=== PATIENT | female | born 1990 | race African-American/Black ===

== ENCOUNTER 2017-03-17 07:11 | Emergency (ER) | payer MEDICAID ==
[~2017-03-17] VITALS: Ht 177.8 cm; Wt 74.0 kg
[~2017-03-17 07:11] MED LIST: HYDR-1348 PO; KEPP500 PO; LEVO500T15 PO; ONDA4TAB5 PO; [UNRECOGNIZED DRUG - CODE] MC
[2017-03-17] MEDS ORDERED: ACETAMINOPHEN 325MG TABLET PO ONE (09:00)
[2017-03-17 09:44] VITALS: BP 110/77
== END 2017-03-17 10:00 | disposition home or self-care (01) ==
LOC: ER 08:43
DX: M54.2 Cervicalgia (principal); M25.522 Pain in left elbow; M25.551 Pain in right hip; Z88.5 Allergy status to narcotic agent
CPT/HCPCS: 72040; 72170; 99284; Z7610

== ENCOUNTER 2017-11-09 09:54 | Emergency (ER) | payer MEDICAID, MEDICARE ==
[~2017-11-09] VITALS: Ht 165.1 cm; Wt 59.0 kg
[~2017-11-09 09:54] MED LIST changes: -LEVO500T15 PO; +LEVO500T2 PO
[2017-11-09] MEDS ORDERED: LORAZEPAM 2MG/ML CPJ IV ONE (11:00)
[2017-11-09] MEDS ORDERED: LEVETIRACETAM 1000MG/100ML 100 ML IV ONE (11:15)
[2017-11-09 11:25] LABS: CHLORIDE 105 mEq/L (98-107)
[2017-11-09 11:30] LABS: BASOPHILS % 0.9 % (0.0-2.0); EOSINOPHILS % 1.8 % (0.0-5.0); ETHANOL BLOOD < 10 mg/dL; HEMATOCRIT. 43.4 % (36.0-48.0); HEMOGLOBIN. 14.2 g/dL (12.0-16.0); LYMPHOCYTES % 28.1 % (20.0-50.0); MEAN CORPUSCULAR HEMOGLOBIN 31.3 pg (28.0-32.0); MEAN CORPUSCULAR VOLUME 95.4 fL (81.0-99.0); MEAN PLATELET VOLUME 9.7 fl (7.4-10.4); NEUTROPHILS % 62.2 % (40.0-76.0); PLATELET 308 x1000/uL (130-400); RED BLOOD CELL COUNT 4.55 mill/uL (4.2-5.4); RED CELL DISTRIBUTION WIDTH 14.2 % (11.6-14.6)
[2017-11-09 11:59] LABS: CLARITY URINE CLEAR (CLEAR); COLOR URINE YELLOW (YELLOW); KETONES URINE NEGATIVE (NEGATIVE); LEUKOCYTE ESTERASE URINE NEGATIVE (NEGATIVE); NITRITE URINE NEGATIVE (NEGATIVE); OCCULT BLOOD URINE TRACE (NEGATIVE); PROTEIN URINE TRACE (NEGATIVE); SPECIFIC GRAVITY URINE 1.021 (1.005-1.030); UROBILINOGEN URINE 0.2 E.U./dL (0.2-1.0)
[2017-11-09 12:52] LABS: *AMPHETAMINES SCREEN URINE NEGATIVE (NEGATIVE); *BARBITURATES SCREEN URINE NEGATIVE (NEGATIVE)
[2017-11-09 12:53] LABS: *BENZODIAZEPINES SCREEN URINE NEGATIVE (NEGATIVE); *COCAINE SCREEN URINE NEGATIVE (NEGATIVE); METHADONE URINE SCREEN NEGATIVE (NEGATIVE); OPIATES URINE SCREEN NEGATIVE (NEGATIVE); PHENCYCLIDINE URINE SCREEN NEGATIVE (NEGATIVE)
[2017-11-09 12:54] LABS: CANNABINOID URINE SCREEN PRESUMTIVE POSITIVE (NEGATIVE)
[2017-11-09] MEDS ORDERED: ONDANSETRON 4MG ODT PO ONE (17:30)
[2017-11-09 18:02] VITALS: BP 98/57
== END 2017-11-09 18:03 | disposition home or self-care (01) ==
LOC: ER 10:29
DX: G40.909 Epilepsy, unspecified, not intractable, without status epilepticus (principal); Z88.5 Allergy status to narcotic agent
CPT/HCPCS: 36415; 70450; 71045; 80053; 80305; 81003; 81025; 82962; 85025; 96365; 96375; 99285; G0482; J1953; J2060; Q0162; Z7610

== ENCOUNTER 2017-11-20 05:41 | Emergency (ER) | payer MEDICARE ==
[~2017-11-20] VITALS: Ht 175.3 cm; Wt 69.0 kg
[2017-11-20 06:01] VITALS: BP 101/68
== END 2017-11-20 10:38 | disposition left against medical advice (07) ==
LOC: ER 06:09
DX: Z53.21 Procedure and treatment not carried out due to patient leaving prior to being seen by health care provider (principal)

== ENCOUNTER 2018-04-10 12:46 | Emergency (ER) | payer MEDICARE ==
[~2018-04-10] VITALS: Ht 167.6 cm; Wt 65.0 kg
[~2018-04-10 12:46] MED LIST changes: +IOHEXOL-300 100 ML BOTTLE ONE
[2018-04-10] MEDS ORDERED: ONDANSETRON HCL 4MG/2ML INJ IV STA (13:09)
[2018-04-10] MEDS ORDERED: MAGNESIUM/ALUMINUM HYDROXIDE/SIMETHICONE 30ML UDC PO STA (13:09)
[2018-04-10] MEDS ORDERED: FAMOTIDINE 20MG/2ML VIAL IV STA (13:09)
[2018-04-10] MEDS ORDERED: SODIUM CHLORIDE 0.9% 1,000 ML IV ONE (13:09)
[2018-04-10 13:37] LABS: BASOPHILS % 0.5 % (0.0-2.0); HEMATOCRIT. 39.8 % (36.0-48.0); HEMOGLOBIN. 13.7 g/dL (12.0-16.0); LYMPHOCYTES % 17.8 % (20.0-50.0); MEAN CORPUSCULAR HEMOGLOBIN 31.5 pg (28.0-32.0); MEAN CORPUSCULAR VOLUME 91.6 fL (81.0-99.0); MEAN PLATELET VOLUME 9.5 fl (7.4-10.4); NEUTROPHILS % 75.7 % (40.0-76.0); PLATELET 293 x1000/uL (130-400); RED BLOOD CELL COUNT 4.35 mill/uL (4.2-5.4); RED CELL DISTRIBUTION WIDTH 13.2 % (11.6-14.6)
[2018-04-10 13:44] LABS: PROTHROMBIN TIME 10.2 sec (9.1-11.1)
[2018-04-10 13:45] LABS: CHLORIDE 105 mEq/L (98-107)
[2018-04-10] MEDS ORDERED: DIPHENHYDRAMINE 50MG/ML VIAL IV ONE (14:15)
[2018-04-10] MEDS ORDERED: METOCLOPRAMIDE HCL 10MG/2ML VIAL IV ONE (14:15)
[2018-04-10] MEDS ORDERED: DICYCLOMINE HCL 10MG/ML 2ML AMP IM ONE (14:15)
[2018-04-10] MEDS ORDERED: KCL 20MEQ/100ML PREMIX 100 ML IV ONE (14:15)
[2018-04-10 15:03] LABS: CLARITY URINE CLEAR (CLEAR); COLOR URINE YELLOW (YELLOW); KETONES URINE 4+ (NEGATIVE); LEUKOCYTE ESTERASE URINE NEGATIVE (NEGATIVE); NITRITE URINE NEGATIVE (NEGATIVE); OCCULT BLOOD URINE NEGATIVE (NEGATIVE); PROTEIN URINE 1+ (NEGATIVE); SPECIFIC GRAVITY URINE 1.022 (1.005-1.030)
[2018-04-10] MEDS ORDERED: SODIUM CHLORIDE 0.9% 1,000 ML IV NR (16:00)
[2018-04-10 16:39] LABS: *AMPHETAMINES SCREEN URINE NEGATIVE (NEGATIVE); *BARBITURATES SCREEN URINE NEGATIVE (NEGATIVE); *BENZODIAZEPINES SCREEN URINE NEGATIVE (NEGATIVE); *COCAINE SCREEN URINE NEGATIVE (NEGATIVE)
[2018-04-10 16:40] LABS: METHADONE URINE SCREEN NEGATIVE (NEGATIVE); OPIATES URINE SCREEN NEGATIVE (NEGATIVE); PHENCYCLIDINE URINE SCREEN NEGATIVE (NEGATIVE)
[2018-04-10 16:43] LABS: CANNABINOID URINE SCREEN PRESUMTIVE POSITIVE (NEGATIVE)
[2018-04-10 18:25] VITALS: BP 111/69
== END 2018-04-10 18:34 | disposition home or self-care (01) ==
LOC: ER 12:46
DX: R11.2 Nausea with vomiting, unspecified (principal); R73.9 Hyperglycemia, unspecified; E87.2 Acidosis; K86.2 Cyst of pancreas; N28.1 Cyst of kidney, acquired; F12.10 Cannabis abuse, uncomplicated; Z76.5 Malingerer [conscious simulation]; Z88.6 Allergy status to analgesic agent; Z79.899 Other long term (current) drug therapy
CPT/HCPCS: 36415; 74177; 80053; 80305; 81003; 81025; 83690; 85025; 85610; 93005; 96361; 96372; 96374; 96375; 99285; J0500; J1200; J2405; J2765; J3480; J3490; J7030; Q9967; 96365

== ENCOUNTER 2018-06-19 13:08 | Emergency (ER) | payer MEDICARE, MEDICAID ==
[~2018-06-19] VITALS: Ht 167.6 cm; Wt 76.0 kg
[~2018-06-19 13:08] MED LIST changes: -IOHEXOL-300 100 ML BOTTLE ONE
[2018-06-19] MEDS ORDERED: SODIUM CHLORIDE 0.9% 1,000 ML IV ONE (15:27)
[2018-06-19] MEDS ORDERED: KETOROLAC 30MG/ML VIAL IV STA (15:27)
[2018-06-19] MEDS ORDERED: ONDANSETRON HCL 4MG/2ML INJ IV STA (15:27)
[2018-06-19] MEDS ORDERED: LORAZEPAM 2MG/ML CPJ IV ONE (15:30)
[2018-06-19] MEDS ORDERED: FAMOTIDINE 20MG/2ML VIAL IV ONE (15:30)
[2018-06-19 15:44] LABS: HEMATOCRIT. 38.9 % (36.0-48.0); HEMOGLOBIN. 13.2 g/dL (12.0-16.0); MEAN CORPUSCULAR HEMOGLOBIN 31.1 pg (28.0-32.0); MEAN CORPUSCULAR VOLUME 91.3 fL (81.0-99.0); MEAN PLATELET VOLUME 9.6 fl (7.4-10.4); PLATELET 299 x1000/uL (130-400); RED BLOOD CELL COUNT 4.26 mill/uL (4.2-5.4); RED CELL DISTRIBUTION WIDTH 13.3 % (11.6-14.6)
[2018-06-19 15:45] LABS: CHLORIDE 105 mEq/L (98-107)
[2018-06-19 16:01] LABS: HCG SCREEN NEGATIVE
[2018-06-19 16:25] LABS: PLATELET ESTIMATE NORMAL
[2018-06-19] MEDS ORDERED: LEVETIRACETAM 500MG PREMIX 100 ML IV ONE (17:00)
[2018-06-19] MEDS ORDERED: POTASSIUM CHLORIDE 10MEQ TABLET SR PO ONE (18:15)
[2018-06-19] MEDS ORDERED: IOHEXOL-300 100 ML BOTTLE ONE (21:09)
[2018-06-19 22:12] LABS: CLARITY URINE CLEAR (CLEAR); COLOR URINE YELLOW (YELLOW); KETONES URINE 1+ (NEGATIVE); LEUKOCYTE ESTERASE URINE NEGATIVE (NEGATIVE); NITRITE URINE NEGATIVE (NEGATIVE); OCCULT BLOOD URINE NEGATIVE (NEGATIVE); PROTEIN URINE TRACE (NEGATIVE); SPECIFIC GRAVITY URINE 1.021 (1.005-1.030); UROBILINOGEN URINE 0.2 E.U./dL (0.2-1.0)
[2018-06-19 22:22] LABS: *AMPHETAMINES SCREEN URINE NEGATIVE (NEGATIVE); *BARBITURATES SCREEN URINE NEGATIVE (NEGATIVE); *BENZODIAZEPINES SCREEN URINE NEGATIVE (NEGATIVE); *COCAINE SCREEN URINE NEGATIVE (NEGATIVE); METHADONE URINE SCREEN NEGATIVE (NEGATIVE); OPIATES URINE SCREEN NEGATIVE (NEGATIVE); PHENCYCLIDINE URINE SCREEN NEGATIVE (NEGATIVE)
[2018-06-19 22:29] LABS: CANNABINOID URINE SCREEN PRESUMTIVE POSITIVE (NEGATIVE)
[2018-06-20] MEDS ORDERED: SODIUM CHLORIDE 0.9% 1000ML BAG (SEPSIS BOLUS) IV ONE (00:15)
[2018-06-20 09:00] VITALS: BP 101/72
== END 2018-06-20 09:15 | disposition left against medical advice (07) ==
LOC: ER 13:08 → UNDOADMIN 06-20 02:15 → 6EST 06-20 02:15 → EDBEDREQSVC 06-20 02:49 → ENRESERV 06-20 02:52 → ER 06-20 04:05
DX: R10.13 Epigastric pain (principal); D72.828 Other elevated white blood cell count; E87.6 Hypokalemia; J98.11 Atelectasis; Q61.01 Congenital single renal cyst; G40.909 Epilepsy, unspecified, not intractable, without status epilepticus; Z88.5 Allergy status to narcotic agent
CPT/HCPCS: 36415; 71045; 74177; 80053; 80305; 81003; 83690; 84703; 85025; 85610; 96361; 96365; 96375; 99285; J1885; J1953; J2060; J2405; J3490; J7030; Q9967

== ENCOUNTER 2018-10-25 15:57 | Emergency (ER) | payer MEDICAID, MEDICARE ==
[~2018-10-25] VITALS: Ht 175.3 cm; Wt 68.0 kg
[2018-10-25 16:05] VITALS: BP 100/70
== END 2018-10-25 18:08 | disposition left against medical advice (07) ==
LOC: ER 15:57
DX: Z53.21 Procedure and treatment not carried out due to patient leaving prior to being seen by health care provider (principal)

== ENCOUNTER 2019-01-22 06:39 | Emergency (ER) | payer MEDICARE ==
[~2019-01-22] VITALS: Ht 177.8 cm; Wt 63.0 kg
[2019-01-22] MEDS ORDERED: LEVETIRACETAM 1000MG/100ML 100 ML IV ONE (07:00)
[2019-01-22 07:10] LABS: BASOPHILS % 0.6 % (0.0-2.0); EOSINOPHILS % 7.6 % (0.0-5.0); HEMATOCRIT. 39.5 % (36.0-48.0); HEMOGLOBIN. 13.2 g/dL (12.0-16.0); LYMPHOCYTES % 24.8 % (20.0-50.0); MEAN CORPUSCULAR HEMOGLOBIN 30.9 pg (28.0-32.0); MEAN CORPUSCULAR VOLUME 92.4 fL (81.0-99.0); MEAN PLATELET VOLUME 9.3 fl (7.4-10.4); MONOCYTES % 8.1 % (2.0-8.0); NEUTROPHILS % 58.9 % (40.0-76.0); PLATELET 234 x1000/uL (130-400); RED BLOOD CELL COUNT 4.27 mill/uL (4.2-5.4); RED CELL DISTRIBUTION WIDTH 13.4 % (11.6-14.6)
[2019-01-22 07:15] LABS: CHLORIDE 109 mEq/L (98-107)
[2019-01-22 07:19] LABS: ETHANOL BLOOD < 10 mg/dL
[2019-01-22 09:35] LABS: CLARITY URINE CLEAR (CLEAR); COLOR URINE YELLOW (YELLOW); KETONES URINE NEGATIVE (NEGATIVE); LEUKOCYTE ESTERASE URINE NEGATIVE (NEGATIVE); NITRITE URINE NEGATIVE (NEGATIVE); OCCULT BLOOD URINE NEGATIVE (NEGATIVE); PH URINE 7.5 (4.5-8.0); PROTEIN URINE NEGATIVE (NEGATIVE); SPECIFIC GRAVITY URINE 1.018 (1.005-1.030); UROBILINOGEN URINE 0.2 E.U./dL (0.2-1.0)
[2019-01-22 09:46] LABS: *AMPHETAMINES SCREEN URINE NEGATIVE (NEGATIVE); *BARBITURATES SCREEN URINE NEGATIVE (NEGATIVE); *BENZODIAZEPINES SCREEN URINE NEGATIVE (NEGATIVE); *COCAINE SCREEN URINE NEGATIVE (NEGATIVE)
[2019-01-22 09:48] LABS: CANNABINOID URINE SCREEN PRESUMTIVE POSITIVE (NEGATIVE); METHADONE URINE SCREEN NEGATIVE (NEGATIVE); OPIATES URINE SCREEN NEGATIVE (NEGATIVE); PHENCYCLIDINE URINE SCREEN NEGATIVE (NEGATIVE)
[2019-01-22 10:52] VITALS: BP 100/60
== END 2019-01-22 11:20 | disposition home or self-care (01) ==
LOC: ER 06:39
DX: R56.9 Unspecified convulsions (principal); F12.10 Cannabis abuse, uncomplicated; Z88.6 Allergy status to analgesic agent; Z79.899 Other long term (current) drug therapy
CPT/HCPCS: 36415; 80053; 80305; 80320; 81003; 85025; 96365; 99283; J1953; G0480

== ENCOUNTER 2019-03-11 07:08 | Emergency (ER) | payer OTHER, MEDICARE ==
[~2019-03-11] VITALS: Ht 167.6 cm; Wt 80.0 kg
[2019-03-11] MEDS ORDERED: LEVETIRACETAM 1000MG/100ML 100 ML IV ONE (07:30)
[2019-03-11] MEDS ORDERED: ONDANSETRON HCL 4MG/2ML INJ IV ONE (08:45)
[2019-03-11 09:22] LABS: CHLORIDE 110 mEq/L (98-107); HEMATOCRIT. 38.2 % (36.0-48.0); HEMOGLOBIN. 12.8 g/dL (12.0-16.0); MEAN CORPUSCULAR HEMOGLOBIN 30.6 pg (28.0-32.0); MEAN CORPUSCULAR VOLUME 91.2 fL (81.0-99.0); MEAN PLATELET VOLUME 9.5 fl (7.4-10.4); PLATELET 223 x1000/uL (130-400); RED BLOOD CELL COUNT 4.19 mill/uL (4.2-5.4); RED CELL DISTRIBUTION WIDTH 13.1 % (11.6-14.6)
[2019-03-11 09:26] LABS: ETHANOL BLOOD < 10 mg/dL
[2019-03-11] MEDS ORDERED: KETOROLAC 30MG/ML VIAL IV ONE (09:30)
[2019-03-11 10:39] LABS: PLATELET ESTIMATE NORMAL
[2019-03-11 10:40] VITALS: BP 112/75
== END 2019-03-11 11:30 | disposition home or self-care (01) ==
LOC: ER 07:08
DX: G40.909 Epilepsy, unspecified, not intractable, without status epilepticus (principal); F12.10 Cannabis abuse, uncomplicated; Z88.5 Allergy status to narcotic agent
CPT/HCPCS: 36415; 80053; 80320; 85025; 96365; 96375; 99283; J1885; J1953; J2405; G0480

== ENCOUNTER 2019-03-31 08:13 | Emergency (ER) | payer OTHER, MEDICARE ==
[~2019-03-31] VITALS: Ht 175.3 cm; Wt 73.0 kg
[2019-03-31] MEDS ORDERED: LEVETIRACETAM 500MG PREMIX 100 ML IV ONE (09:45)
[2019-03-31 10:27] VITALS: BP 103/67
== END 2019-03-31 10:47 | disposition home or self-care (01) ==
LOC: ER 08:34
DX: S00.512A Abrasion of oral cavity, initial encounter (principal); R56.9 Unspecified convulsions; F12.10 Cannabis abuse, uncomplicated; Z88.5 Allergy status to narcotic agent; Z98.890 Other specified postprocedural states; Z91.14 Patient's other noncompliance with medication regimen; X58.XXXA Exposure to other specified factors, initial encounter; Y93.89 Activity, other specified; Y92.89 Other specified places as the place of occurrence of the external cause; Y99.8 Other external cause status
CPT/HCPCS: 96365; 99283; J1953

== ENCOUNTER 2019-06-16 13:19 | Inpatient (IN) | payer OTHER, MEDICAID ==
[~2019-06-16] VITALS: Ht 175.3 cm; Wt 72.6 kg
[2019-06-16] MEDS ORDERED: SODIUM CHLORIDE 0.9% 1,000 ML IV ONE (14:21)
[2019-06-16] MEDS ORDERED: KETOROLAC 30MG/ML VIAL IV STA (14:21)
[2019-06-16] MEDS ORDERED: DIAZEPAM 5 MG TABLET PO ONE (14:30)
[2019-06-16 14:44] LABS: BASOPHILS % 1.2 % (0.0-2.0); EOSINOPHILS % 6.2 % (0.0-5.0); HEMATOCRIT. 36.6 % (36.0-48.0); HEMOGLOBIN. 12.6 g/dL (12.0-16.0); LYMPHOCYTES % 31.9 % (20.0-50.0); MEAN CORPUSCULAR HEMOGLOBIN 31.5 pg (28.0-32.0); MEAN CORPUSCULAR VOLUME 91.7 fL (81.0-99.0); MEAN PLATELET VOLUME 9.3 fl (7.4-10.4); MONOCYTES % 7.5 % (2.0-8.0); NEUTROPHILS % 53.2 % (40.0-76.0); PLATELET 214 x1000/uL (130-400); RED CELL DISTRIBUTION WIDTH 13.4 % (11.6-14.6)
[2019-06-16 14:51] LABS: CHLORIDE 110 mEq/L (98-107)
[2019-06-16 14:59] LABS: HCG SCREEN NEGATIVE
[2019-06-16] MEDS ORDERED: DEXT 5%/0.45% NACL KCL 20MEQ/L 1,000 ML IV ONE (15:08)
[2019-06-16] MEDS ORDERED: IOHEXOL-300 100 ML BOTTLE ONE (19:50)
[2019-06-16] MEDS ORDERED: LEVETIRACETAM 500MG TABLET PO ONE (20:45)
[2019-06-16] MEDS ORDERED: HYDROMORPHONE HCL/PF 2MG/ML CPJ IV PRN (22:00)
[2019-06-16] MEDS ORDERED: IPRATROPIUM/ALBUTEROL 0.5-3(2.5)MG/3ML NEB NEB PRN (22:00)
[2019-06-16] MEDS ORDERED: ONDANSETRON HCL 4MG/2ML INJ IV PRN (22:00)
[2019-06-16] MEDS ORDERED: NA PHOS,M-B/NA PHOS,DI-BA ENEMA 118ML PR PRN (22:00)
[2019-06-16] MEDS ORDERED: DOCUSATE SODIUM 100MG CAPSULE PO PRN (22:00)
[2019-06-16] MEDS ORDERED: MAGNESIUM/ALUMINUM HYDROXIDE/SIMETHICONE 30ML UDC PO PRN (22:00)
[2019-06-16] MEDS ORDERED: GUAIFENESIN 200MG/10ML SUGAR FREE UDC PO PRN (22:00)
[2019-06-16] MEDS ORDERED: PIPERACILLIN/TAZ 3.375G PREMIX 50 ML IV SCH (22:00)
[2019-06-16] MEDS ORDERED: ACETAMINOPHEN 325MG TABLET PO PRN (22:00)
[2019-06-16] MEDS ORDERED: LORAZEPAM 2MG/ML CPJ IV PRN (22:00)
[2019-06-16] MEDS ORDERED: HYDROCODONE/ACETAMINOPHEN 10/325MG TABLET PO PRN (22:00)
[2019-06-16] MEDS ORDERED: CLONIDINE 0.1MG TABLET PO PRN (22:00)
[2019-06-16 22:50] VITALS: BP 99/89
[2019-06-17] VITALS: BP 99/59
[2019-06-17] MEDS: PIPERACILLIN/TAZOBACTAM 3.375 G in DEXT 5% WATER 100 ML IV SCH ×3 (00:03→13:04)
[2019-06-17 00:23] LABS: CHLORIDE 110 mEq/L (98-107)
[2019-06-17 04:00] VITALS: BP 99/59
[2019-06-17 06:34] LABS: BASOPHILS % 1.1 % (0.0-2.0); HEMATOCRIT. 34.8 % (36.0-48.0); LYMPHOCYTES % 38.1 % (20.0-50.0); MEAN CORPUSCULAR HEMOGLOBIN 31.3 pg (28.0-32.0); MEAN CORPUSCULAR VOLUME 91.1 fL (81.0-99.0); MEAN PLATELET VOLUME 9.6 fl (7.4-10.4); MONOCYTES % 9.6 % (2.0-8.0); NEUTROPHILS % 42.2 % (40.0-76.0); PLATELET 203 x1000/uL (130-400); RED BLOOD CELL COUNT 3.82 mill/uL (4.2-5.4); RED CELL DISTRIBUTION WIDTH 13.2 % (11.6-14.6)
[2019-06-17 07:11] LABS: CHLORIDE 109 mEq/L (98-107)
[2019-06-17 07:22] LABS: LDL CHOLESTEROL 59 mg/dL (5-100)
[2019-06-17 07:23] LABS: HDL CHOLESTEROL 68 mg/dL (40-59)
[2019-06-17 07:35] LABS: T4 FREE 0.88 ng/dL (0.76-1.46)
[2019-06-17] MEDS ORDERED: LEVETIRACETAM 500MG TABLET PO SCH (09:00)
[2019-06-17 15:29] VITALS: BP 108/72
== END 2019-06-17 15:46 | disposition home or self-care (01) | DRG 552 ==
LOC: ER 13:32 → 6EST 20:47 → EDBEDREQ 20:49 → EDBEDREQTM 20:49 → ENRESERV 21:07
PROVIDERS: ADMIT Internal Medicine; ATTEND Internal Medicine
DX: M54.2 Cervicalgia (principal); E86.0 Dehydration; D24.2 Benign neoplasm of left breast; D24.1 Benign neoplasm of right breast; G40.909 Epilepsy, unspecified, not intractable, without status epilepticus; Z88.5 Allergy status to narcotic agent; Z79.899 Other long term (current) drug therapy
CPT/HCPCS: 36415; 70491; 71045; 72070; 80048; 80061; 82962; 83880; 84439; 84443; 84484; 84703; 93005; 99285; J1885; J2543; J7030; J7040; J7060; Q9967

== ENCOUNTER 2019-07-13 06:21 | Emergency (ER) | payer OTHER, MEDICAID ==
[~2019-07-13] VITALS: Ht 170.2 cm; Wt 64.0 kg
[2019-07-13] MEDS ORDERED: ONDANSETRON HCL 4MG/2ML INJ IV STA (06:48)
[2019-07-13] MEDS ORDERED: KETOROLAC 30MG/ML VIAL IV STA (06:48)
[2019-07-13] MEDS ORDERED: SODIUM CHLORIDE 0.9% 1,000 ML IV ONE (06:48)
[2019-07-13 08:39] LABS: BASOPHILS % 0.3 % (0.0-2.0); EOSINOPHILS % 0.5 % (0.0-5.0); HEMATOCRIT. 38.6 % (36.0-48.0); HEMOGLOBIN. 12.9 g/dL (12.0-16.0); LYMPHOCYTES % 9.4 % (20.0-50.0); MEAN CORPUSCULAR HEMOGLOBIN 30.7 pg (28.0-32.0); MEAN CORPUSCULAR VOLUME 91.3 fL (81.0-99.0); MEAN PLATELET VOLUME 9.9 fl (7.4-10.4); MONOCYTES % 4.6 % (2.0-8.0); NEUTROPHILS % 85.2 % (40.0-76.0); PLATELET 241 x1000/uL (130-400); RED BLOOD CELL COUNT 4.22 mill/uL (4.2-5.4); RED CELL DISTRIBUTION WIDTH 13.1 % (11.6-14.6)
[2019-07-13 08:42] LABS: CHLORIDE 105 mEq/L (98-107)
[2019-07-13 08:44] LABS: PROTHROMBIN TIME 9.9 sec (9.6-11.0)
[2019-07-13 08:52] LABS: HCG SCREEN NEGATIVE
[2019-07-13] MEDS ORDERED: LEVETIRACETAM 500MG TABLET PO ONE (09:30)
[2019-07-13 10:40] VITALS: BP 106/71
[2019-07-13 11:05] LABS: CLARITY URINE CLOUDY (CLEAR); COLOR URINE YELLOW (YELLOW); KETONES URINE 4+ (NEGATIVE); LEUKOCYTE ESTERASE URINE NEGATIVE (NEGATIVE); NITRITE URINE NEGATIVE (NEGATIVE); OCCULT BLOOD URINE NEGATIVE (NEGATIVE); PROTEIN URINE 1+ (NEGATIVE)
== END 2019-07-13 10:47 | disposition home or self-care (01) ==
LOC: ER 06:21
DX: R10.84 Generalized abdominal pain (principal); Z76.0 Encounter for issue of repeat prescription; G40.909 Epilepsy, unspecified, not intractable, without status epilepticus; Z85.9 Personal history of malignant neoplasm, unspecified; Z88.5 Allergy status to narcotic agent
CPT/HCPCS: 36415; 80053; 81003; 83690; 84703; 85025; 85610; 96361; 96374; 96375; 99283; J1885; J2405; J7030

== ENCOUNTER 2019-09-25 14:43 | Emergency (ER) | payer MEDICAID, OTHER ==
[~2019-09-25] VITALS: Ht 182.9 cm; Wt 69.0 kg
[2019-09-25] MEDS ORDERED: SODIUM CHLORIDE 0.9% 1,000 ML IV ONE (16:45)
[2019-09-25] MEDS ORDERED: IBUPROFEN 600MG TABLET PO STA (16:45)
[2019-09-25 17:04] LABS: CLARITY URINE CLOUDY (CLEAR); COLOR URINE YELLOW (YELLOW); KETONES URINE NEGATIVE (NEGATIVE); LEUKOCYTE ESTERASE URINE NEGATIVE (NEGATIVE); NITRITE URINE NEGATIVE (NEGATIVE); OCCULT BLOOD URINE NEGATIVE (NEGATIVE); PROTEIN URINE TRACE (NEGATIVE); SPECIFIC GRAVITY URINE 1.021 (1.005-1.030)
[2019-09-25 17:16] LABS: BASOPHILS % 0.9 % (0.0-2.0); EOSINOPHILS % 1.7 % (0.0-5.0); HEMATOCRIT. 38.1 % (36.0-48.0); MEAN CORPUSCULAR HEMOGLOBIN 31.4 pg (28.0-32.0); MEAN PLATELET VOLUME 9.2 fl (7.4-10.4); MONOCYTES % 5.3 % (2.0-8.0); NEUTROPHILS % 80.1 % (40.0-76.0); PLATELET 223 x1000/uL (130-400); RED BLOOD CELL COUNT 4.15 mill/uL (4.2-5.4); RED CELL DISTRIBUTION WIDTH 13.2 % (11.6-14.6)
[2019-09-25 17:23] LABS: CHLORIDE 110 mEq/L (98-107)
[2019-09-25 17:24] LABS: HCG SCREEN NEGATIVE
[2019-09-25 18:58] VITALS: BP 107/85
== END 2019-09-25 19:38 | disposition home or self-care (01) ==
LOC: ER 14:52
DX: G40.909 Epilepsy, unspecified, not intractable, without status epilepticus (principal); S82.831A Other fracture of upper and lower end of right fibula, initial encounter for closed fracture; Z88.5 Allergy status to narcotic agent; X58.XXXA Exposure to other specified factors, initial encounter; Y93.89 Activity, other specified; Y92.89 Other specified places as the place of occurrence of the external cause
CPT/HCPCS: 29515; 36415; 73610; 80053; 81003; 84703; 85025; 99284; J7030

== ENCOUNTER 2020-01-15 11:25 | Emergency (ER) | payer OTHER ==
[~2020-01-15] VITALS: Ht 172.7 cm; Wt 73.0 kg
[2020-01-15] MEDS ORDERED: SODIUM CHLORIDE 0.9% 1,000 ML IV ONE (11:59)
[2020-01-15] MEDS ORDERED: ACETAMINOPHEN 325MG TABLET PO ONE (12:00)
[2020-01-15] MEDS ORDERED: LEVETIRACETAM 500MG TABLET PO ONE (12:00)
[2020-01-15 13:15] LABS: BASOPHILS % 0.6 % (0.0-2.0); EOSINOPHILS % 1.8 % (0.0-5.0); HEMATOCRIT. 38.4 % (36.0-48.0); HEMOGLOBIN. 13.1 g/dL (12.0-16.0); LYMPHOCYTES % 14.6 % (20.0-50.0); MEAN CORPUSCULAR HEMOGLOBIN 32.3 pg (28.0-32.0); MEAN CORPUSCULAR VOLUME 94.2 fL (81.0-99.0); MEAN PLATELET VOLUME 9.5 fl (7.4-10.4); MONOCYTES % 6.7 % (2.0-8.0); NEUTROPHILS % 76.3 % (40.0-76.0); PLATELET 214 x1000/uL (130-400); RED BLOOD CELL COUNT 4.08 mill/uL (4.2-5.4); RED CELL DISTRIBUTION WIDTH 13.4 % (11.6-14.6)
[2020-01-15 13:28] LABS: CHLORIDE 109 mEq/L (98-107)
[2020-01-15 13:33] LABS: HCG SCREEN NEGATIVE
[2020-01-15 13:38] LABS: ETHANOL BLOOD < 10 mg/dL
[2020-01-15] MEDS ORDERED: IBUPROFEN 400MG TABLET PO ONE (14:30)
[2020-01-15 15:16] VITALS: BP 106/60
== END 2020-01-15 15:21 | disposition home or self-care (01) ==
LOC: ER 11:25
DX: G40.909 Epilepsy, unspecified, not intractable, without status epilepticus (principal); R51 Headache; Z88.5 Allergy status to narcotic agent
CPT/HCPCS: 36415; 70450; 70486; 71045; 80053; 80320; 84703; 85025; 99285; J7030; G0480

== ENCOUNTER 2020-04-25 07:51 | Emergency (ER) | payer OTHER ==
[~2020-04-25] VITALS: Ht 165.1 cm; Wt 62.0 kg
[2020-04-25] MEDS ORDERED: LEVETIRACETAM 1000MG/100ML 100 ML IV ONE (08:15)
[2020-04-25 08:37] LABS: BASOPHILS % 0.9 % (0.0-2.0); EOSINOPHILS % 6.4 % (0.0-5.0); HEMATOCRIT. 39.7 % (36.0-48.0); HEMOGLOBIN. 13.2 g/dL (12.0-16.0); LYMPHOCYTES % 30.4 % (20.0-50.0); MEAN CORPUSCULAR HEMOGLOBIN 31.7 pg (28.0-32.0); MEAN CORPUSCULAR VOLUME 95.1 fL (81.0-99.0); MEAN PLATELET VOLUME 9.3 fl (7.4-10.4); NEUTROPHILS % 54.3 % (40.0-76.0); PLATELET 226 x1000/uL (130-400); RED BLOOD CELL COUNT 4.18 mill/uL (4.2-5.4); RED CELL DISTRIBUTION WIDTH 13.8 % (11.6-14.6)
[2020-04-25 08:40] LABS: CHLORIDE 109 mEq/L (98-107)
[2020-04-25 08:44] LABS: ETHANOL BLOOD < 10 mg/dL
[2020-04-25 10:30] VITALS: BP 88/46
== END 2020-04-25 11:20 | disposition home or self-care (01) ==
LOC: ER 08:17
DX: G40.909 Epilepsy, unspecified, not intractable, without status epilepticus (principal); Z88.5 Allergy status to narcotic agent; Z88.2 Allergy status to sulfonamides
CPT/HCPCS: 36415; 80053; 80320; 85025; 96365; 99284; J1953; G0480

== ENCOUNTER 2020-09-27 09:16 | Inpatient (IN) | payer SELFPAY ==
[~2020-09-27] VITALS: Ht 175.3 cm; Wt 73.9 kg
[2020-09-27] MEDS ORDERED: LEVETIRACETAM 1000MG PREMIX 100 ML IV ONE (10:00)
[2020-09-27] MEDS ORDERED: SODIUM CHLORIDE 0.9% 1,000 ML IV ONE (10:45)
[2020-09-27] MEDS ORDERED: ONDANSETRON HCL 4MG/2ML INJ IV ONE (10:45)
[2020-09-27 11:12] LABS: BASOPHILS % 0.9 % (0.0-2.0); EOSINOPHILS % 2.1 % (0.0-5.0); HEMATOCRIT. 36.2 % (36.0-48.0); HEMOGLOBIN. 12.2 g/dL (12.0-16.0); LYMPHOCYTES % 13.7 % (20.0-50.0); MEAN CORPUSCULAR HEMOGLOBIN 31.2 pg (28.0-32.0); MEAN CORPUSCULAR VOLUME 92.9 fL (81.0-99.0); MEAN PLATELET VOLUME 10.1 fl (7.4-10.4); NEUTROPHILS % 76.3 % (40.0-76.0); PLATELET 262 x1000/uL (130-400); RED BLOOD CELL COUNT 3.89 mill/uL (4.2-5.4); RED CELL DISTRIBUTION WIDTH 13.3 % (11.6-14.6)
[2020-09-27 11:23] LABS: CHLORIDE 111 mEq/L (98-107)
[2020-09-27 11:33] LABS: CARBAMAZEPINE < 0.5 ug/mL (4-12); PHENOBARBITAL < 2.1 ug/mL (15.0-40.0); VALPROIC ACID < 3.0 ug/mL (50-100)
[2020-09-27] MEDS ORDERED: LORAZEPAM 2MG/ML CPJ IV ONE (11:45)
[2020-09-27] MEDS ORDERED: FAMOTIDINE 20MG/2ML VIAL IV ONE (12:00)
[2020-09-27 13:12] LABS: ETHANOL BLOOD < 10 mg/dL
[2020-09-27 13:23] LABS: HCG SCREEN NEGATIVE
[2020-09-27] MEDS ORDERED: ONDANSETRON HCL 4MG/2ML INJ IV PRN (13:45)
[2020-09-27] MEDS ORDERED: ACETAMINOPHEN 325MG TABLET PO PRN ×2 (13:45)
[2020-09-27] MEDS ORDERED: CLONIDINE 0.1MG TABLET PO PRN (13:45)
[2020-09-27] MEDS ORDERED: MAGNESIUM/ALUMINUM HYDROXIDE/SIMETHICONE 30ML UDC PO PRN (13:45)
[2020-09-27] MEDS ORDERED: DOCUSATE SODIUM 100MG CAPSULE PO PRN (13:45)
[2020-09-27] MEDS ORDERED: KETOROLAC 15MG/ML VIAL IV PRN (13:45)
[2020-09-27] MEDS ORDERED: LORAZEPAM 2MG/ML CPJ IV PRN (13:45)
[2020-09-27] MEDS ORDERED: GUAIFENESIN 200MG/10ML SUGAR FREE UDC PO PRN (13:45)
[2020-09-27] MEDS ORDERED: IPRATROPIUM/ALBUTEROL 0.5-3(2.5)MG/3ML NEB NEB PRN (13:45)
[2020-09-27] MEDS ORDERED: NITROGLYCERIN 0.4MG TABLET SL SL PRN (13:45)
[2020-09-27 21:00] LABS: CREATINE KINASE 380 IU/L (26-192); CREATINE KINASE MB FRACTION < 1.0 ng/mL (0.5-3.6)
[2020-09-27] MEDS ORDERED: ZOLPIDEM TARTRATE 5MG TABLET PO PRN (21:00)
[2020-09-27] MEDS: ASCORBIC ACID 500 MG TABLET PO SCH (21:20)
[2020-09-27] MEDS: LEVETIRACETAM 500MG TABLET PO SCH (21:20)
[2020-09-27] MEDS: FAMOTIDINE 20MG TABLET PO SCH (21:20)
[2020-09-27] MEDS: SUCRALFATE 1 G/10 ML UDC PO SCH ×2 (22:06→22:15)
[2020-09-28] VITALS (8 sets, daily range): BP systolic 82–111; BP diastolic 42–89
[2020-09-28 00:38] LABS: CREATINE KINASE 598 IU/L (26-192)
[2020-09-28 00:42] LABS: CREATINE KINASE MB FRACTION < 1.0 ng/mL (0.5-3.6)
[2020-09-28] MEDS ORDERED: LEVE750T4 MT (02:43)
[2020-09-28] MEDS: SUCRALFATE 1 G/10 ML UDC PO SCH ×4 (06:46→20:54)
[2020-09-28 07:02] LABS: CHLORIDE 110 mEq/L (98-107)
[2020-09-28 07:09] LABS: PHOSPHORUS 3.4 mg/dL (2.5-4.9)
[2020-09-28 07:14] LABS: BASOPHILS % 0.8 % (0.0-2.0); EOSINOPHILS % 2.6 % (0.0-5.0); HEMATOCRIT. 35.5 % (36.0-48.0); HEMOGLOBIN. 11.9 g/dL (12.0-16.0); LYMPHOCYTES % 24.2 % (20.0-50.0); MEAN CORPUSCULAR HEMOGLOBIN 31.1 pg (28.0-32.0); MEAN CORPUSCULAR VOLUME 92.8 fL (81.0-99.0); MEAN PLATELET VOLUME 9.5 fl (7.4-10.4); MONOCYTES % 8.5 % (2.0-8.0); NEUTROPHILS % 63.9 % (40.0-76.0); PLATELET 215 x1000/uL (130-400); RED BLOOD CELL COUNT 3.83 mill/uL (4.2-5.4); RED CELL DISTRIBUTION WIDTH 13.1 % (11.6-14.6)
[2020-09-28] MEDS: ASCORBIC ACID 500 MG TABLET PO SCH ×2 (08:25→20:54)
[2020-09-28] MEDS: ASPIRIN 325MG EC TABLET PO SCH (08:25)
[2020-09-28] MEDS: LEVETIRACETAM 500MG TABLET PO SCH ×2 (08:26→20:54)
[2020-09-28] MEDS: FAMOTIDINE 20MG TABLET PO SCH ×2 (08:26→20:55)
[2020-09-28 18:51] LABS: *AMPHETAMINES SCREEN URINE NEGATIVE (NEGATIVE); *BARBITURATES SCREEN URINE NEGATIVE (NEGATIVE); *BENZODIAZEPINES SCREEN URINE NEGATIVE (NEGATIVE); *COCAINE SCREEN URINE NEGATIVE (NEGATIVE)
[2020-09-28 18:52] LABS: METHADONE URINE SCREEN NEGATIVE (NEGATIVE); OPIATES URINE SCREEN NEGATIVE (NEGATIVE); PHENCYCLIDINE URINE SCREEN NEGATIVE (NEGATIVE)
[2020-09-28 19:01] LABS: CANNABINOID URINE SCREEN PRESUMTIVE POSITIVE (NEGATIVE)
[2020-09-29] VITALS: BP 102/62
[2020-09-29 04:00] VITALS: BP 101/56
[2020-09-29] MEDS: SUCRALFATE 1 G/10 ML UDC PO SCH (06:42)
[2020-09-29 08:00] VITALS: BP 97/62
[2020-09-29] MEDS: LEVETIRACETAM 500MG TABLET PO SCH (08:33)
[2020-09-29] MEDS: ASPIRIN 325MG EC TABLET PO SCH (08:33)
[2020-09-29] MEDS: ASCORBIC ACID 500 MG TABLET PO SCH (08:33)
[2020-09-29] MEDS: FAMOTIDINE 20MG TABLET PO SCH (08:33)
[2020-09-29 09:35] VITALS: BP 96/62
== END 2020-09-29 11:17 | disposition home or self-care (01) | DRG 53 ==
LOC: ER 09:24 → 6WST 14:20 → ENRESERV 23:07
PROVIDERS: ADMIT Internal Medicine; ATTEND Internal Medicine
DX: G40.401 Other generalized epilepsy and epileptic syndromes, not intractable, with status epilepticus (principal); M94.0 Chondrocostal junction syndrome [Tietze]; E83.51 Hypocalcemia; G92 Toxic encephalopathy; T18.198A Other foreign object in esophagus causing other injury, initial encounter; X58.XXXA Exposure to other specified factors, initial encounter; Y93.89 Activity, other specified; Y92.89 Other specified places as the place of occurrence of the external cause; Y99.8 Other external cause status; Z88.5 Allergy status to narcotic agent; Z88.2 Allergy status to sulfonamides
CPT/HCPCS: 36415; 71045; 80053; 80061; 80156; 80165; 80184; 80185; 80305; 80320; 82550; 82553; 82962; 83036; 83735; 84100; 84484; 84703; 85025; 93005; 93970; 96365; 99291; J1953; J2060; J2405; J7030; G0480

== ENCOUNTER 2020-11-16 13:04 | Emergency (ER) | payer MEDICAID ==
[~2020-11-16] VITALS: Ht 175.3 cm; Wt 73.0 kg
[~2020-11-16 13:04] MED LIST changes: -HYDR-1348 PO; -KEPP500 PO; +LEVE750T4 MT; -LEVO500T2 PO; -ONDA4TAB5 PO; -[UNRECOGNIZED DRUG - CODE] MC
[2020-11-16] MEDS ORDERED: KETOROLAC 30MG/ML VIAL IV STA (13:19)
[2020-11-16] MEDS ORDERED: ONDANSETRON HCL 4MG/2ML INJ IV STA (13:19)
[2020-11-16] MEDS ORDERED: LEVETIRACETAM 500MG PREMIX 100 ML IV ONE (13:30)
[2020-11-16] MEDS ORDERED: SODIUM CHLORIDE 0.9% 1,000 ML IV ONE (13:30)
[2020-11-16 13:43] LABS: EOSINOPHILS % 4.1 % (0.0-5.0); HEMATOCRIT. 39.5 % (36.0-48.0); HEMOGLOBIN. 12.8 g/dL (12.0-16.0); LYMPHOCYTES % 19.8 % (20.0-50.0); MEAN CORPUSCULAR HEMOGLOBIN 30.7 pg (28.0-32.0); MEAN PLATELET VOLUME 9.3 fl (7.4-10.4); MONOCYTES % 6.5 % (2.0-8.0); NEUTROPHILS % 68.6 % (40.0-76.0); PLATELET 251 x1000/uL (130-400); RED BLOOD CELL COUNT 4.16 mill/uL (4.2-5.4); RED CELL DISTRIBUTION WIDTH 13.5 % (11.6-14.6)
[2020-11-16 13:51] LABS: CHLORIDE 111 mEq/L (98-107)
[2020-11-16] MEDS ORDERED: LEVE750T4 MT (17:13)
[2020-11-16 17:18] VITALS: BP 104/65
== END 2020-11-16 20:27 | disposition home or self-care (01) ==
LOC: ER 13:04
DX: G40.909 Epilepsy, unspecified, not intractable, without status epilepticus (principal); Z88.2 Allergy status to sulfonamides; Z88.5 Allergy status to narcotic agent
CPT/HCPCS: 36415; 80053; 85025; 93005; 96365; 96375; 99284; J1885; J1953; J2405; J7030; Z7610

== ENCOUNTER 2021-01-08 07:32 | Inpatient (IN) | payer SELFPAY ==
[~2021-01-08] VITALS: Ht 175.3 cm; Wt 74.9 kg
[2021-01-08] MEDS ORDERED: LEVETIRACETAM 1000MG PREMIX 100 ML IV ONE (08:00)
[2021-01-08] MEDS ORDERED: SODIUM CHLORIDE 0.9% 1,000 ML IV ONE ×2 (08:00→10:00)
[2021-01-08] MEDS ORDERED: LORAZEPAM 2MG/ML CPJ IV ONE ×4 (08:00→09:30)
[2021-01-08 08:44] LABS: BASOPHILS % 0.4 % (0.0-2.0); EOSINOPHILS % 1.7 % (0.0-5.0); HEMATOCRIT. 40.7 % (36.0-48.0); HEMOGLOBIN. 13.5 g/dL (12.0-16.0); LYMPHOCYTES % 23.1 % (20.0-50.0); MEAN CORPUSCULAR HEMOGLOBIN 30.8 pg (28.0-32.0); MEAN CORPUSCULAR VOLUME 93.1 fL (81.0-99.0); MEAN PLATELET VOLUME 9.3 fl (7.4-10.4); MONOCYTES % 7.5 % (2.0-8.0); NEUTROPHILS % 67.3 % (40.0-76.0); PLATELET 293 x1000/uL (130-400); RED BLOOD CELL COUNT 4.37 mill/uL (4.2-5.4); RED CELL DISTRIBUTION WIDTH 13.4 % (11.6-14.6)
[2021-01-08 08:49] LABS: CHLORIDE 111 mEq/L (98-107)
[2021-01-08 08:54] LABS: ETHANOL BLOOD < 10 mg/dL
[2021-01-08 09:37] LABS: BG BASE EXCESS -4.5 mmol/L (-2.0-2.0); BG CARBOXYHEMOGLOBIN 0.3 % (0.5-1.5); BG DEOXYHEMOGLOBIN 1.4 % (0.0-5.0); BG FRACTION INSPIRED OXYGEN 32; BG HCO3 ACT 20.7 mmol/L (22.0-26.0); BG METHEMOGLOBIN 0.4 % (0.0-1.5); BG OXYGEN SATURATION 98.6 % (92.0-98.5); BG OXYHEMOGLOBIN 97.9 % (94.0-97.0); BG PCO2 38.3 mmHg (35.0-45.0); BG PO2 157.2 mmHg (75.0-100.0); BG SAMPLE SITE RIGHT RADIAL; BG TOTAL HEMOGLOBIN 12.6 g/dL (12.0-18.0); BG VENT MODE NASAL CANNULA
[2021-01-08] MEDS ORDERED: OLANZAPINE 10 MG/VIAL IM ONE (10:00)
[2021-01-08 10:18] LABS: CLARITY URINE CLEAR (CLEAR); COLOR URINE YELLOW (YELLOW); KETONES URINE TRACE (NEGATIVE); LEUKOCYTE ESTERASE URINE NEGATIVE (NEGATIVE); NITRITE URINE NEGATIVE (NEGATIVE); OCCULT BLOOD URINE TRACE (NEGATIVE); PROTEIN URINE NEGATIVE (NEGATIVE); SPECIFIC GRAVITY URINE 1.019 (1.005-1.030); UROBILINOGEN URINE 0.2 E.U./dL (0.2-1.0)
[2021-01-08 10:23] LABS: HCG SCREEN NEGATIVE
[2021-01-08 10:47] LABS: *AMPHETAMINES SCREEN URINE NEGATIVE (NEGATIVE); *BARBITURATES SCREEN URINE NEGATIVE (NEGATIVE); *BENZODIAZEPINES SCREEN URINE NEGATIVE (NEGATIVE); *COCAINE SCREEN URINE NEGATIVE (NEGATIVE); METHADONE URINE SCREEN NEGATIVE (NEGATIVE)
[2021-01-08 10:48] LABS: OPIATES URINE SCREEN NEGATIVE (NEGATIVE); PHENCYCLIDINE URINE SCREEN NEGATIVE (NEGATIVE)
[2021-01-08 10:56] LABS: CANNABINOID URINE SCREEN PRESUMTIVE POSITIVE (NEGATIVE)
[2021-01-08 20:00] VITALS: BP 98/45
[2021-01-08] MEDS ORDERED: ONDANSETRON HCL 4MG/2ML INJ IV PRN (20:15)
[2021-01-08] MEDS ORDERED: ACETAMINOPHEN 325MG TABLET PO PRN (20:15)
[2021-01-08] MEDS ORDERED: LORAZEPAM 2MG/ML CPJ IV PRN (20:15)
[2021-01-08] MEDS ORDERED: HYDROCODONE/ACETAMINOPHEN 5/325MG TABLET PO PRN (20:15)
[2021-01-08] MEDS ORDERED: POTASSIUM CHLORIDE 20MEQ/PACKET PO NR (21:00)
[2021-01-08] MEDS: ENOXAPARIN 40MG/0.4ML SYR SUBCUT SCH ×2 (21:00→22:09)
[2021-01-08] MEDS ORDERED: LEVETIRACETAM 500 MG in SODIUM CHLORIDE 0.9% 100 ML IV SCH (21:00)
[2021-01-08 22:00] VITALS: BP 111/63
[2021-01-08] MEDS: LEVETIRACETAM 1000MG PREMIX 100 ML IV SCH (22:10)
[2021-01-09 01:36] VITALS: BP 98/45
[2021-01-09 02:00] VITALS: BP 102/59
[2021-01-09 04:00] VITALS: BP 87/47
[2021-01-09 06:00] VITALS: BP 89/51
[2021-01-09 08:00] VITALS: BP 96/45
[2021-01-09 08:23] LABS: BASOPHILS % 0.5 % (0.0-2.0); EOSINOPHILS % 1.8 % (0.0-5.0); HEMATOCRIT. 35.1 % (36.0-48.0); HEMOGLOBIN. 12.3 g/dL (12.0-16.0); LYMPHOCYTES % 19.1 % (20.0-50.0); MEAN CORPUSCULAR HEMOGLOBIN 31.5 pg (28.0-32.0); MEAN CORPUSCULAR VOLUME 89.9 fL (81.0-99.0); MEAN PLATELET VOLUME 8.8 fl (7.4-10.4); MONOCYTES % 5.8 % (2.0-8.0); NEUTROPHILS % 72.8 % (40.0-76.0); PLATELET 248 x1000/uL (130-400); RED BLOOD CELL COUNT 3.91 mill/uL (4.2-5.4); RED CELL DISTRIBUTION WIDTH 13.3 % (11.6-14.6)
[2021-01-09 08:32] LABS: CHLORIDE 110 mEq/L (98-107)
[2021-01-09] MEDS: LEVETIRACETAM 1000MG PREMIX 100 ML IV SCH (09:19)
[2021-01-09 09:30] VITALS: BP 105/61
== END 2021-01-09 10:17 | disposition left against medical advice (07) | DRG 53 ==
LOC: ER 07:43 → 5EST 09:37 → ENRESERV 13:21 → CANRESERV 13:21 → ENRESERV 17:11 → 5EST 18:36
PROVIDERS: ADMIT Family Medicine; ATTEND Family Medicine
DX: G40.409 Other generalized epilepsy and epileptic syndromes, not intractable, without status epilepticus (principal); Z53.29 Procedure and treatment not carried out because of patient's decision for other reasons; Z88.2 Allergy status to sulfonamides; Z88.6 Allergy status to analgesic agent
CPT/HCPCS: 36415; 36600; 80048; 80053; 80305; 80320; 81003; 82375; 82805; 84703; 85025; 99291; J1650; J1953; J2060; J3490; J7030; G0480

== ENCOUNTER 2021-02-12 08:05 | Emergency (ER) | payer OTHER ==
[~2021-02-12] VITALS: Ht 167.6 cm; Wt 64.0 kg
[2021-02-12] MEDS ORDERED: SODIUM CHLORIDE 0.9% 1,000 ML IV ONE (08:30)
[2021-02-12 08:47] LABS: BASOPHILS % 0.6 % (0.0-2.0); EOSINOPHILS % 4.7 % (0.0-5.0); HEMATOCRIT. 40.1 % (36.0-48.0); LYMPHOCYTES % 18.7 % (20.0-50.0); MEAN CORPUSCULAR HEMOGLOBIN 31.4 pg (28.0-32.0); MEAN PLATELET VOLUME 9.5 fl (7.4-10.4); MONOCYTES % 7.3 % (2.0-8.0); NEUTROPHILS % 68.7 % (40.0-76.0); PLATELET 214 x1000/uL (130-400); RED BLOOD CELL COUNT 4.45 mill/uL (4.2-5.4); RED CELL DISTRIBUTION WIDTH 13.3 % (11.6-14.6)
[2021-02-12 08:51] LABS: CHLORIDE 110 mEq/L (98-107)
[2021-02-12 08:55] LABS: ETHANOL BLOOD < 10 mg/dL; HCG SCREEN NEGATIVE
[2021-02-12] MEDS ORDERED: ACETAMINOPHEN 325MG TABLET PO ONE (09:00)
[2021-02-12] MEDS ORDERED: LEVETIRACETAM 500MG TABLET PO ONE (09:15)
[2021-02-12 11:00] VITALS: BP 94/52
[2021-02-12] MEDS ORDERED: LEVE1000 MT (11:22)
== END 2021-02-12 11:48 | disposition home or self-care (01) ==
LOC: ER 08:05
DX: R56.9 Unspecified convulsions (principal); R51.9 Headache, unspecified; Z88.2 Allergy status to sulfonamides
CPT/HCPCS: 36415; 80053; 80320; 82962; 84703; 85025; 96360; 96361; 99283; J7030; G0480

== ENCOUNTER 2021-05-01 08:34 | Emergency (ER) | payer OTHER ==
[~2021-05-01] VITALS: Ht 167.6 cm; Wt 90.0 kg
[~2021-05-01 08:34] MED LIST changes: +LEVE1000 MT
[2021-05-01] MEDS ORDERED: LEVETIRACETAM 500MG PREMIX 100 ML IV ONE (09:00)
[2021-05-01 09:35] LABS: BASOPHILS % 0.8 % (0.0-2.0); EOSINOPHILS % 2.7 % (0.0-5.0); HEMATOCRIT. 39.2 % (36.0-48.0); HEMOGLOBIN. 13.4 g/dL (12.0-16.0); MEAN CORPUSCULAR HEMOGLOBIN 31.1 pg (28.0-32.0); MEAN CORPUSCULAR VOLUME 91.4 fL (81.0-99.0); MONOCYTES % 5.8 % (2.0-8.0); NEUTROPHILS % 73.7 % (40.0-76.0); PLATELET 239 x1000/uL (130-400); RED BLOOD CELL COUNT 4.29 mill/uL (4.2-5.4); RED CELL DISTRIBUTION WIDTH 13.8 % (11.6-14.6)
[2021-05-01 09:36] LABS: CHLORIDE 110 mEq/L (98-107)
[2021-05-01] MEDS ORDERED: SODIUM CHLORIDE 0.9% 1,000 ML IV ONE (10:00)
[2021-05-01 12:09] LABS: CLARITY URINE CLOUDY (CLEAR); COLOR URINE YELLOW (YELLOW); KETONES URINE NEGATIVE (NEGATIVE); LEUKOCYTE ESTERASE URINE NEGATIVE (NEGATIVE); NITRITE URINE NEGATIVE (NEGATIVE); OCCULT BLOOD URINE NEGATIVE (NEGATIVE); PROTEIN URINE TRACE (NEGATIVE); SPECIFIC GRAVITY URINE 1.022 (1.005-1.030)
[2021-05-01] MEDS ORDERED: CEPH500C2 MT (13:08)
[2021-05-01 13:33] VITALS: BP 110/65
[2021-05-01] MEDS ORDERED: LEVE1000 MT (13:34)
== END 2021-05-01 13:58 | disposition home or self-care (01) ==
LOC: ER 08:57
DX: G40.909 Epilepsy, unspecified, not intractable, without status epilepticus (principal); N39.0 Urinary tract infection, site not specified; Z88.2 Allergy status to sulfonamides; Z88.5 Allergy status to narcotic agent
CPT/HCPCS: 36415; 80053; 81003; 85025; 96361; 96365; 99284; J1953; J7030

== ENCOUNTER 2021-07-08 12:38 | Emergency (ER) | payer OTHER ==
[~2021-07-08] VITALS: Ht 175.3 cm; Wt 70.0 kg
[~2021-07-08 12:38] MED LIST changes: +CEPH500C2 MT
[2021-07-08] MEDS ORDERED: LEVETIRACETAM 500MG PREMIX 200 ML IV SCH (13:00)
[2021-07-08 13:14] LABS: BASOPHILS % 0.4 % (0.0-2.0); EOSINOPHILS % 0.8 % (0.0-5.0); HEMATOCRIT. 38.8 % (36.0-48.0); HEMOGLOBIN. 12.8 g/dL (12.0-16.0); LYMPHOCYTES % 7.9 % (20.0-50.0); MEAN CORPUSCULAR HEMOGLOBIN 31.2 pg (28.0-32.0); MEAN CORPUSCULAR VOLUME 94.4 fL (81.0-99.0); MEAN PLATELET VOLUME 9.2 fl (7.4-10.4); MONOCYTES % 6.4 % (2.0-8.0); NEUTROPHILS % 84.5 % (40.0-76.0); PLATELET 238 x1000/uL (130-400); RED BLOOD CELL COUNT 4.11 mill/uL (4.2-5.4); RED CELL DISTRIBUTION WIDTH 13.7 % (11.6-14.6)
[2021-07-08] MEDS ORDERED: LEVETIRACETAM 1000MG PREMIX 100 ML IV ONE (13:15)
[2021-07-08 13:18] LABS: CHLORIDE 109 mEq/L (98-107)
[2021-07-08 13:22] LABS: ETHANOL BLOOD < 10 mg/dL
[2021-07-08 13:41] LABS: CLARITY URINE CLEAR (CLEAR); COLOR URINE YELLOW (YELLOW); KETONES URINE TRACE (NEGATIVE); LEUKOCYTE ESTERASE URINE NEGATIVE (NEGATIVE); NITRITE URINE NEGATIVE (NEGATIVE); OCCULT BLOOD URINE NEGATIVE (NEGATIVE); PH URINE 5.5 (4.5-8.0); PROTEIN URINE NEGATIVE (NEGATIVE); SPECIFIC GRAVITY URINE 1.022 (1.005-1.030)
[2021-07-08 14:01] LABS: *AMPHETAMINES SCREEN URINE NEGATIVE (NEGATIVE); *BARBITURATES SCREEN URINE NEGATIVE (NEGATIVE); *BENZODIAZEPINES SCREEN URINE NEGATIVE (NEGATIVE)
[2021-07-08 14:02] LABS: *COCAINE SCREEN URINE NEGATIVE (NEGATIVE); METHADONE URINE SCREEN NEGATIVE (NEGATIVE); OPIATES URINE SCREEN NEGATIVE (NEGATIVE); PHENCYCLIDINE URINE SCREEN NEGATIVE (NEGATIVE)
[2021-07-08 14:04] LABS: CANNABINOID URINE SCREEN PRESUMTIVE POSITIVE (NEGATIVE)
[2021-07-08] MEDS ORDERED: LEVE750T4 MT (14:55)
[2021-07-08] MEDS ORDERED: KETOROLAC 15MG/ML VIAL IV ONE (15:15)
[2021-07-08 15:50] VITALS: BP 116/70
== END 2021-07-08 15:52 | disposition home or self-care (01) ==
LOC: ER 12:38
DX: G40.909 Epilepsy, unspecified, not intractable, without status epilepticus (principal); Z88.5 Allergy status to narcotic agent; Z88.2 Allergy status to sulfonamides
CPT/HCPCS: 36415; 70450; 80053; 80305; 80320; 81003; 81025; 85025; 93005; 96365; 96375; 99285; J1885; J1953; Z7610; G0480

== ENCOUNTER 2021-08-04 12:19 | Emergency (ER) | payer OTHER | END 2021-08-04 13:01 | disposition left against medical advice (07) | LOC: ER 12:19 | DX: Z53.21 Procedure and treatment not carried out due to patient leaving prior to being seen by health care provider (principal) ==

== ENCOUNTER 2021-08-17 12:55 | Inpatient (IN) | payer OTHER ==
[~2021-08-17] VITALS: Ht 172.7 cm; Wt 65.0 kg
[2021-08-17] MEDS ORDERED: ONDANSETRON HCL 4MG/2ML INJ IV STA (13:08)
[2021-08-17] MEDS ORDERED: LEVETIRACETAM 1000MG PREMIX 100 ML IV ONE (13:15)
[2021-08-17] MEDS ORDERED: SODIUM CHLORIDE 0.9% 1,000 ML IV ONE ×2 (13:15→18:45)
[2021-08-17 13:49] LABS: CHLORIDE 109 mEq/L (98-107)
[2021-08-17 13:55] LABS: BASOPHILS % 1.1 % (0.0-2.0); EOSINOPHILS % 0.6 % (0.0-5.0); ETHANOL BLOOD < 10 mg/dL; HEMATOCRIT. 39.3 % (36.0-48.0); HEMOGLOBIN. 13.2 g/dL (12.0-16.0); LYMPHOCYTES % 20.7 % (20.0-50.0); MEAN CORPUSCULAR HEMOGLOBIN 31.4 pg (28.0-32.0); MEAN CORPUSCULAR VOLUME 93.4 fL (81.0-99.0); MEAN PLATELET VOLUME 9.5 fl (7.4-10.4); MONOCYTES % 4.4 % (2.0-8.0); NEUTROPHILS % 73.2 % (40.0-76.0); PLATELET 276 x1000/uL (130-400); RED BLOOD CELL COUNT 4.21 mill/uL (4.2-5.4); RED CELL DISTRIBUTION WIDTH 13.5 % (11.6-14.6)
[2021-08-17] MEDS ORDERED: HALOPERIDOL LACTATE 5MG/ML VIAL IM ONE (14:45)
[2021-08-17 16:40] LABS: HCG SCREEN NEGATIVE
[2021-08-17] MEDS ORDERED: LORAZEPAM 2MG/ML CPJ IV ONE (16:45)
[2021-08-18 06:00] VITALS: BP 88/42
[2021-08-18] MEDS ORDERED: CLONIDINE 0.1MG TABLET PO PRN (06:30)
[2021-08-18] MEDS ORDERED: LORAZEPAM 2MG/ML CPJ IV PRN (06:30)
[2021-08-18] MEDS ORDERED: ACETAMINOPHEN 325MG TABLET PO PRN (06:30)
[2021-08-18] MEDS ORDERED: MAGNESIUM/ALUMINUM HYDROXIDE/SIMETHICONE 30ML UDC PO PRN (06:30)
[2021-08-18] MEDS ORDERED: DOCUSATE SODIUM 100MG CAPSULE PO PRN (06:30)
[2021-08-18] MEDS ORDERED: ONDANSETRON HCL 4MG/2ML INJ IV PRN (06:30)
[2021-08-18 07:54] LABS: CLARITY URINE CLOUDY (CLEAR); COLOR URINE YELLOW (YELLOW); KETONES URINE 2+ (NEGATIVE); LEUKOCYTE ESTERASE URINE NEGATIVE (NEGATIVE); NITRITE URINE NEGATIVE (NEGATIVE); OCCULT BLOOD URINE NEGATIVE (NEGATIVE); PROTEIN URINE TRACE (NEGATIVE); SPECIFIC GRAVITY URINE 1.021 (1.005-1.030); UROBILINOGEN URINE 0.2 E.U./dL (0.2-1.0)
[2021-08-18] MEDS ORDERED: SODIUM CHLORIDE 0.9% 1,000 ML IV SCH (08:00)
[2021-08-18 08:02] LABS: *AMPHETAMINES SCREEN URINE NEGATIVE (NEGATIVE); *BARBITURATES SCREEN URINE NEGATIVE (NEGATIVE); *BENZODIAZEPINES SCREEN URINE NEGATIVE (NEGATIVE)
[2021-08-18 08:03] LABS: *COCAINE SCREEN URINE NEGATIVE (NEGATIVE); METHADONE URINE SCREEN NEGATIVE (NEGATIVE); OPIATES URINE SCREEN NEGATIVE (NEGATIVE); PHENCYCLIDINE URINE SCREEN NEGATIVE (NEGATIVE)
[2021-08-18 08:08] LABS: CANNABINOID URINE SCREEN PRESUMTIVE POSITIVE (NEGATIVE)
[2021-08-18] MEDS ORDERED: LEVETIRACETAM 500MG TABLET PO SCH (09:00)
== END 2021-08-18 20:25 | disposition left against medical advice (07) | DRG 101 ==
LOC: ER 13:02 → MICUSO 20:14 → EDBEDREQ 20:21 → EDBEDREQTM 20:21 → 8WST 08-18 05:51 → MICUSO 08-18 07:11
PROVIDERS: ADMIT Hospitalist; ATTEND Hospitalist
DX: G40.409 Other generalized epilepsy and epileptic syndromes, not intractable, without status epilepticus (principal); E87.2 Acidosis; E16.2 Hypoglycemia, unspecified; Z91.14 Patient's other noncompliance with medication regimen; Z88.5 Allergy status to narcotic agent; Z88.2 Allergy status to sulfonamides; Z79.899 Other long term (current) drug therapy; Z82.49 Family history of ischemic heart disease and other diseases of the circulatory system; Z91.19 Patient's noncompliance with other medical treatment and regimen
CPT/HCPCS: 36415; 80053; 80305; 80320; 81003; 84703; 85025; 99291; J1630; J1953; J2405; J7030; G0480

== ENCOUNTER 2021-10-07 07:19 | Emergency (ER) | payer OTHER ==
[~2021-10-07] VITALS: Ht 167.6 cm; Wt 66.0 kg
[2021-10-07] MEDS ORDERED: LEVETIRACETAM 1000MG PREMIX 100 ML IV ONE (07:30)
[2021-10-07 07:41] VITALS: BP 92/53
[2021-10-07 08:29] LABS: BASOPHILS % 0.9 % (0.0-2.0); CHLORIDE 108 mEq/L (98-107); EOSINOPHILS % 4.2 % (0.0-5.0); HEMATOCRIT. 38.5 % (36.0-48.0); HEMOGLOBIN. 13.1 g/dL (12.0-16.0); LYMPHOCYTES % 19.4 % (20.0-50.0); MEAN CORPUSCULAR VOLUME 93.8 fL (81.0-99.0); MEAN PLATELET VOLUME 8.8 fl (7.4-10.4); MONOCYTES % 7.3 % (2.0-8.0); NEUTROPHILS % 68.2 % (40.0-76.0); PLATELET 257 x1000/uL (130-400); RED BLOOD CELL COUNT 4.11 mill/uL (4.2-5.4); RED CELL DISTRIBUTION WIDTH 13.8 % (11.6-14.6)
[2021-10-07 08:33] LABS: ETHANOL BLOOD < 10 mg/dL
[2021-10-07] MEDS ORDERED: KEPP500 PO (09:21)
[2021-10-07] MEDS ORDERED: ACETAMINOPHEN 325MG TABLET PO ONE (09:45)
[2021-10-07] MEDS ORDERED: METOCLOPRAMIDE HCL 10MG/2ML VIAL IV ONE (09:45)
== END 2021-10-07 09:45 | disposition home or self-care (01) ==
LOC: ER 07:19
DX: G40.909 Epilepsy, unspecified, not intractable, without status epilepticus (principal); Z88.5 Allergy status to narcotic agent; Z88.2 Allergy status to sulfonamides
CPT/HCPCS: 36415; 80053; 80320; 85025; 93005; 96365; 99284; J1953; Z7610; 80305; G0480

== ENCOUNTER 2021-12-06 17:38 | Emergency (ER) | payer OTHER ==
[~2021-12-06] VITALS: Ht 170.2 cm; Wt 60.0 kg
[~2021-12-06 17:38] MED LIST changes: +KEPP500 PO
[2021-12-06] MEDS ORDERED: LEVETIRACETAM 1000MG PREMIX 100 ML IV ONE (18:00)
[2021-12-06 19:38] LABS: BASOPHILS % 0.5 % (0.0-2.0); EOSINOPHILS % 0.7 % (0.0-5.0); HEMATOCRIT. 34.9 % (36.0-48.0); HEMOGLOBIN. 12.1 g/dL (12.0-16.0); LYMPHOCYTES % 7.1 % (20.0-50.0); MEAN CORPUSCULAR VOLUME 92.4 fL (81.0-99.0); MEAN PLATELET VOLUME 8.3 fl (7.4-10.4); NEUTROPHILS % 86.7 % (40.0-76.0); PLATELET 279 x1000/uL (130-400); RED BLOOD CELL COUNT 3.78 mill/uL (4.2-5.4); RED CELL DISTRIBUTION WIDTH 12.7 % (11.6-14.6)
[2021-12-06 19:47] LABS: CHLORIDE 109 mEq/L (98-107)
[2021-12-06 19:56] LABS: ETHANOL BLOOD < 10 mg/dL
[2021-12-06 20:00] VITALS: BP 122/74
== END 2021-12-06 21:03 | disposition home or self-care (01) ==
LOC: ER 17:38
DX: G40.909 Epilepsy, unspecified, not intractable, without status epilepticus (principal)
CPT/HCPCS: 36415; 80053; 80320; 85025; 99283; G0480

== ENCOUNTER 2022-06-07 09:05 | Emergency (ER) | payer OTHER ==
[~2022-06-07] VITALS: Ht 165.1 cm; Wt 77.0 kg
[2022-06-07 09:21] VITALS: BP 127/85
[2022-06-07] MEDS ORDERED: ACETAMINOPHEN 325MG TABLET PO ONE (10:15)
[2022-06-07] MEDS ORDERED: ACETAMINOPHEN 500MG TABLET PO NR (11:00)
[2022-06-07] MEDS ORDERED: ACET-2708 MT (13:38)
== END 2022-06-07 14:01 | disposition home or self-care (01) ==
LOC: ER 09:05
DX: S62.632A Displaced fracture of distal phalanx of right middle finger, initial encounter for closed fracture (principal); Z88.2 Allergy status to sulfonamides; Y04.0XXA Assault by unarmed brawl or fight, initial encounter; Y93.89 Activity, other specified; Y92.89 Other specified places as the place of occurrence of the external cause; Y99.8 Other external cause status
CPT/HCPCS: 29130; 72100; 73080; 73140; 99284

== ENCOUNTER 2022-09-27 17:13 | Emergency (ER) | payer OTHER ==
[~2022-09-27] VITALS: Ht 175.3 cm; Wt 70.0 kg
[~2022-09-27 17:13] MED LIST changes: +ACET-2708 MT
[2022-09-27 17:22] VITALS: BP 102/53
[2022-09-27] MEDS ORDERED: LEVETIRACETAM 500MG TABLET PO ONE (17:45)
== END 2022-09-27 18:09 | disposition left against medical advice (07) ==
LOC: ER 17:13
DX: R56.9 Unspecified convulsions (principal); Z88.2 Allergy status to sulfonamides; Z98.890 Other specified postprocedural states
CPT/HCPCS: 99283

== ENCOUNTER 2023-04-14 10:29 | Emergency (ER) | payer MEDICAID, OTHER ==
[~2023-04-14] VITALS: Ht 167.6 cm; Wt 55.0 kg
[2023-04-14 10:32] VITALS: O2SAT 96
[2023-04-14] MEDS ORDERED: LEVETIRACETAM 1000MG PREMIX 100 ML IV ONE (11:00)
[2023-04-14 11:04] LABS: BASOPHILS % 0.7 % (0.0-2.0); EOSINOPHILS % 2.9 % (0.0-5.0); HEMATOCRIT. 37.7 % (36.0-48.0); HEMOGLOBIN. 12.9 g/dL (12.0-16.0); LYMPHOCYTES % 23.8 % (20.0-50.0); MEAN CORPUSCULAR HEMOGLOBIN 32.1 pg (28.0-32.0); MEAN CORPUSCULAR HGB CONC 34.3 g/dL (31.0-37.0); MEAN CORPUSCULAR VOLUME 93.4 fL (81.0-99.0); MEAN PLATELET VOLUME 9.3 fl (7.4-10.4); MONOCYTES % 5.8 % (2.0-8.0); NEUTROPHILS % 66.8 % (40.0-76.0); PLATELET 245 x1000/uL (130-400); RED BLOOD CELL COUNT 4.03 mill/uL (4.2-5.4); RED CELL DISTRIBUTION WIDTH 13.4 % (11.6-14.6); WHITE BLOOD COUNT 5.5 x1000/uL (4.5-11.0)
[2023-04-14 11:16] LABS: CHLORIDE 108 mEq/L (98-107); INDEX HEMOLYSI 1 (1-3); INDEX ICTERIC 1 (1-4); INDEX LIPEMIC 1 (1-3); POTASSIUM 3.7 mEq/L (3.5-5.1); SODIUM 138 mEq/L (136-145)
[2023-04-14 11:17] LABS: CALCIUM 9.2 mg/dL (8.5-10.1)
[2023-04-14 11:23] LABS: ALANINE AMINOTRANSFERASE 10 IU/L (13-61); ALBUMIN 4.1 g/dL (3.4-5.0); ASPARTATE AMINOTRANSFERASE 11 IU/L (15-37); BILIRUBIN TOTAL 0.4 mg/dL (0.1-1.0); CARBON DIOXIDE 21 mEq/L (21-32); CREATININE 0.7 mg/dL (0.6-1.3); GLUCOSE 130 mg/dL (70-105); PROTEIN TOTAL 6.7 g/dL (6.0-8.3); UREA NITROGEN BLOOD 10 mg/dL (7-21)
[2023-04-14] MEDS ORDERED: SODIUM CHLORIDE 0.9% 1,000 ML IV ONE (12:30)
[2023-04-14 13:31] VITALS: BP 99/72; PULSE 60; RESP 15; TEMP 97.9
== END 2023-04-14 13:40 | disposition home or self-care (01) ==
LOC: ER 10:29
DX: G40.909 Epilepsy, unspecified, not intractable, without status epilepticus (principal); Z88.2 Allergy status to sulfonamides
CPT/HCPCS: 99284; 96365; 96361; 96366; 80053; 85025; 36415; J1953; J7030

== ENCOUNTER 2024-02-19 16:13 | Emergency (ER) | payer MEDICAID ==
[~2024-02-19] VITALS: Ht 175.3 cm; Wt 75.0 kg
[2024-02-19 16:15] VITALS: O2SAT 99
[2024-02-19 18:01] VITALS: BP 108/80; PULSE 84; RESP 18; TEMP 98.5
== END 2024-02-19 18:45 | disposition home or self-care (01) ==
LOC: ER 16:13
DX: R56.9 Unspecified convulsions (principal); Z88.2 Allergy status to sulfonamides; Z88.6 Allergy status to analgesic agent
CPT/HCPCS: 99284

== ENCOUNTER 2024-04-22 08:38 | Emergency (ER) | payer MEDICAID ==
[~2024-04-22] VITALS: Ht 157.5 cm; Wt 57.0 kg
[2024-04-22 08:50] VITALS: TEMP 98.6; O2SAT 98
[2024-04-22] MEDS: LEVETIRACETAM 500MG PREMIX 100 ML IV ONE ×2 (09:00→09:45)
[2024-04-22 09:25] LABS: BASOPHILS % 0.5 % (0.0-2.0); EOSINOPHILS % 3.5 % (0.0-5.0); HEMATOCRIT. 38.7 % (36.0-48.0); HEMOGLOBIN. 13.1 g/dL (12.0-16.0); LYMPHOCYTES % 18.6 % (20.0-50.0); MEAN CORPUSCULAR HEMOGLOBIN 31.4 pg (28.0-32.0); MEAN CORPUSCULAR HGB CONC 33.9 g/dL (31.0-37.0); MEAN CORPUSCULAR VOLUME 92.6 fL (81.0-99.0); MEAN PLATELET VOLUME 8.6 fl (7.4-10.4); MONOCYTES % 5.7 % (2.0-8.0); NEUTROPHILS % 71.7 % (40.0-76.0); PLATELET 295 x1000/uL (130-400); RED BLOOD CELL COUNT 4.18 mill/uL (4.2-5.4); RED CELL DISTRIBUTION WIDTH 13.1 % (11.6-14.6); WHITE BLOOD COUNT 9.4 x1000/uL (4.5-11.0)
[2024-04-22 09:37] LABS: CARBON DIOXIDE 20 mEq/L (21-32); CHLORIDE 110 mEq/L (98-107); SODIUM 140 mEq/L (136-145)
[2024-04-22 09:38] LABS: CALCIUM 9.3 mg/dL (8.7-10.4)
[2024-04-22 09:43] LABS: GLUCOSE 71 mg/dL (70-105); UREA NITROGEN BLOOD 12 mg/dL (9-23)
[2024-04-22 09:44] LABS: ALANINE AMINOTRANSFERASE 7 IU/L (10-49); ASPARTATE AMINOTRANSFERASE 12 IU/L (<34)
[2024-04-22 09:45] LABS: ALBUMIN 4.4 g/dL (3.2-4.8); BILIRUBIN TOTAL 0.2 mg/dL (0.1-1.0); PROTEIN TOTAL 6.6 g/dL (6.0-8.3)
[2024-04-22] MEDS: LACTATED RINGERS 1,000 ML IV SCH (09:45)
[2024-04-22 09:51] LABS: HCG SCREEN NEGATIVE
[2024-04-22] MEDS: LEVETIRACETAM 500MG PREMIX 100 ML IV SCH (11:00)
[2024-04-22 11:05] VITALS: BP 110/72; PULSE 92; RESP 17; O2SAT 100
== END 2024-04-22 11:30 | disposition home or self-care (01) ==
LOC: ER 08:38
DX: R56.9 Unspecified convulsions (principal); Z79.899 Other long term (current) drug therapy; Z88.6 Allergy status to analgesic agent; Z88.2 Allergy status to sulfonamides
CPT/HCPCS: 99285; 96374; 70450; 80053; 84703; 85025; 36415; 93005; 96376; J1953

== ENCOUNTER 2024-05-23 17:24 | Emergency (ER) | payer MEDICAID ==
[~2024-05-23] VITALS: Ht 170.2 cm; Wt 75.0 kg
[2024-05-23 17:28] VITALS: O2SAT 98
[2024-05-23] MEDS: LORAZEPAM 2MG/ML INJ IV ONE (18:18)
[2024-05-23 18:20] LABS: BASOPHILS % 0.9 % (0.0-2.0); HEMATOCRIT. 38.5 % (36.0-48.0); HEMOGLOBIN. 12.9 g/dL (12.0-16.0); LYMPHOCYTES % 13.4 % (20.0-50.0); MEAN CORPUSCULAR HEMOGLOBIN 31.3 pg (28.0-32.0); MEAN CORPUSCULAR HGB CONC 33.5 g/dL (31.0-37.0); MEAN CORPUSCULAR VOLUME 93.4 fL (81.0-99.0); MEAN PLATELET VOLUME 8.7 fl (7.4-10.4); MONOCYTES % 6.5 % (2.0-8.0); NEUTROPHILS % 75.2 % (40.0-76.0); PLATELET 278 x1000/uL (130-400); RED BLOOD CELL COUNT 4.12 mill/uL (4.2-5.4); RED CELL DISTRIBUTION WIDTH 14.7 % (11.6-14.6); WHITE BLOOD COUNT 6.5 x1000/uL (4.5-11.0)
[2024-05-23 18:24] LABS: CHLORIDE 107 mEq/L (98-107); POTASSIUM 4.5 mEq/L (3.5-5.1); SODIUM 139 mEq/L (136-145)
[2024-05-23 18:25] LABS: CARBON DIOXIDE 26 mEq/L (21-32)
[2024-05-23 18:26] LABS: CALCIUM 9.3 mg/dL (8.7-10.4)
[2024-05-23 18:30] LABS: CREATININE 0.9 mg/dL (0.6-1.0); GLUCOSE 91 mg/dL (70-105)
[2024-05-23 18:31] LABS: UREA NITROGEN BLOOD 9 mg/dL (9-23)
[2024-05-23 18:32] LABS: TROPONIN I HIGH SENSITIVITY 4 ng/L (3.0-34)
[2024-05-23 18:36] LABS: ETHANOL BLOOD < 10 mg/dL (<10)
[2024-05-23 18:41] LABS: LACTIC ACID 5.3 mmol/L (0.4-2.0)
[2024-05-23] MEDS: LEVETIRACETAM 500MG PREMIX 100 ML IV ONE (18:54)
[2024-05-23] MEDS: SODIUM CHLORIDE 0.9% 1,000 ML IV ONE (18:55)
[2024-05-23 19:39] LABS: HCG SCREEN NEGATIVE
[2024-05-23] MEDS ORDERED: LEVE1000 MT (23:20)
[2024-05-23 23:40] VITALS: BP 100/60; PULSE 70; RESP 19; TEMP 36.33624; O2SAT 100
== END 2024-05-23 23:48 | disposition home or self-care (01) ==
LOC: ER 17:24
DX: G40.909 Epilepsy, unspecified, not intractable, without status epilepticus (principal); Z88.2 Allergy status to sulfonamides; Z79.899 Other long term (current) drug therapy
CPT/HCPCS: 80048; 80320; 84703; 83605; 85025; 84484; 36415; 96365; 96366; 96375; 99285; J1953; J2060; J7030; Z7610; G0480

== ENCOUNTER 2024-05-24 15:28 | Emergency (ER) | payer MEDICAID ==
[~2024-05-24] VITALS: Ht 175.3 cm; Wt 81.0 kg
[2024-05-24 15:36] VITALS: BP 116/77; PULSE 79; RESP 18; TEMP 98.4; O2SAT 98
[2024-05-25] MEDS ORDERED: LACO200T4 PO (16:11)
== END 2024-05-24 18:06 | disposition left against medical advice (07) ==
LOC: ER 15:28
DX: Z76.0 Encounter for issue of repeat prescription (principal); Z53.21 Procedure and treatment not carried out due to patient leaving prior to being seen by health care provider

== ENCOUNTER 2024-05-25 14:50 | Emergency (ER) | payer MEDICAID ==
[~2024-05-25] VITALS: Ht 175.3 cm; Wt 81.0 kg
[2024-05-25 15:08] VITALS: BP 124/68; PULSE 56; RESP 18; TEMP 98.3; O2SAT 97
[2024-05-25] MEDS ORDERED: LACO200T4 PO (16:11)
== END 2024-05-25 16:43 | disposition home or self-care (01) ==
LOC: ER 15:00
DX: G40.909 Epilepsy, unspecified, not intractable, without status epilepticus (principal); Z76.0 Encounter for issue of repeat prescription; Z88.2 Allergy status to sulfonamides; Z88.5 Allergy status to narcotic agent; Z79.899 Other long term (current) drug therapy
CPT/HCPCS: 99281

== ENCOUNTER 2024-08-05 12:38 | Emergency (ER) | payer MEDICAID ==
[~2024-08-05] VITALS: Ht 177.8 cm; Wt 72.0 kg
[~2024-08-05 12:38] MED LIST changes: +LACO200T4 PO
[2024-08-05 12:55] VITALS: O2SAT 97
[2024-08-05] MEDS ORDERED: LACO200T4 PO (14:43)
[2024-08-05] MEDS ORDERED: LEVE1000 MT (14:43)
[2024-08-05 14:59] VITALS: BP 100/55; PULSE 68; RESP 16; TEMP 36.83628; O2SAT 97
== END 2024-08-05 15:00 | disposition home or self-care (01) ==
LOC: ER 12:45
DX: G40.909 Epilepsy, unspecified, not intractable, without status epilepticus (principal); Z76.0 Encounter for issue of repeat prescription; Z88.5 Allergy status to narcotic agent; Z88.2 Allergy status to sulfonamides; Z79.899 Other long term (current) drug therapy
CPT/HCPCS: 99281

== ENCOUNTER 2024-08-07 16:02 | Emergency (ER) | payer MEDICAID ==
[~2024-08-07] VITALS: Ht 170.2 cm; Wt 70.0 kg
[2024-08-07 16:05] VITALS: O2SAT 100
[2024-08-07] MEDS: LEVETIRACETAM 500MG PREMIX 100 ML IV ONE (16:15)
[2024-08-07 16:40] LABS: BASOPHILS % 0.7 % (0.0-2.0); EOSINOPHILS % 6.8 % (0.0-5.0); HEMOGLOBIN. 12.6 g/dL (12.0-16.0); LYMPHOCYTES % 22.3 % (20.0-50.0); MEAN CORPUSCULAR HEMOGLOBIN 31.4 pg (28.0-32.0); MEAN CORPUSCULAR HGB CONC 32.3 g/dL (31.0-37.0); MEAN CORPUSCULAR VOLUME 97.1 fL (81.0-99.0); MEAN PLATELET VOLUME 8.8 fl (7.4-10.4); MONOCYTES % 8.2 % (2.0-8.0); PLATELET 255 x1000/uL (130-400); RED BLOOD CELL COUNT 4.02 mill/uL (4.2-5.4); RED CELL DISTRIBUTION WIDTH 13.9 % (11.6-14.6); WHITE BLOOD COUNT 6.9 x1000/uL (4.5-11.0)
[2024-08-07 16:48] LABS: CHLORIDE 107 mEq/L (98-107)
[2024-08-07 16:49] LABS: CARBON DIOXIDE 22 mEq/L (21-32); SODIUM 138 mEq/L (136-145)
[2024-08-07 16:50] LABS: CALCIUM 9.2 mg/dL (8.7-10.4)
[2024-08-07 16:53] LABS: HCG SCREEN NEGATIVE
[2024-08-07 16:54] LABS: CREATININE 0.9 mg/dL (0.6-1.0); GLUCOSE 84 mg/dL (70-105); UREA NITROGEN BLOOD 9 mg/dL (9-23)
[2024-08-07 18:45] VITALS: BP 115/81; PULSE 82; RESP 15; TEMP 36.83628; O2SAT 100
== END 2024-08-07 17:35 | disposition home or self-care (01) ==
LOC: ER 16:02
DX: G40.909 Epilepsy, unspecified, not intractable, without status epilepticus (principal); I10 Essential (primary) hypertension; Z79.899 Other long term (current) drug therapy; Z88.2 Allergy status to sulfonamides; Z88.5 Allergy status to narcotic agent
CPT/HCPCS: 99284; 96365; 80048; 84703; 85025; 36415; J1953; 96374; 99283

== ENCOUNTER 2024-08-23 17:27 | Emergency (ER) | payer MEDICAID ==
[~2024-08-23] VITALS: Ht 175.3 cm; Wt 81.6 kg
[2024-08-23 17:36] VITALS: BP 111/68; PULSE 95; RESP 16; TEMP 99.5; O2SAT 98
== END 2024-08-23 20:40 | disposition left against medical advice (07) ==
LOC: ER 17:27
DX: R06.02 Shortness of breath (principal); Z53.21 Procedure and treatment not carried out due to patient leaving prior to being seen by health care provider
CPT/HCPCS: 93005

== ENCOUNTER 2024-09-16 14:43 | Emergency (ER) | payer MEDICAID ==
[~2024-09-16] VITALS: Ht 175.3 cm; Wt 77.1 kg
[2024-09-16 14:46] VITALS: BP 129/87; PULSE 78; RESP 16; TEMP 37.1; O2SAT 99
[2024-09-16] MEDS ORDERED: LACO200T4 PO (14:49)
[2024-09-16] MEDS ORDERED: LEVE1000 MT (14:49)
== END 2024-09-16 14:56 | disposition home or self-care (01) ==
LOC: ER 14:43
DX: R56.9 Unspecified convulsions (principal); Z76.0 Encounter for issue of repeat prescription; Z98.890 Other specified postprocedural states; Z79.899 Other long term (current) drug therapy; Z88.2 Allergy status to sulfonamides; Z88.5 Allergy status to narcotic agent
CPT/HCPCS: 99281

== ENCOUNTER 2024-09-29 14:43 | Emergency (ER) | payer MEDICAID ==
[~2024-09-29] VITALS: Ht 182.9 cm; Wt 70.0 kg
[~2024-09-29 14:43] MED LIST changes: -LACO200T4 PO
[2024-09-29 14:48] VITALS: BP 100/62; PULSE 64; RESP 19; TEMP 36.7; O2SAT 100
== END 2024-09-29 18:58 | disposition left against medical advice (07) ==
LOC: ER 14:49
DX: R10.9 Unspecified abdominal pain (principal); Z53.21 Procedure and treatment not carried out due to patient leaving prior to being seen by health care provider

== ENCOUNTER 2024-11-15 15:34 | Emergency (ER) | payer MEDICAID ==
[~2024-11-15] VITALS: Ht 175.3 cm; Wt 73.0 kg
[2024-11-15 15:37] VITALS: O2SAT 98
[2024-11-15 15:55] VITALS: BP 117/78; PULSE 81; RESP 16; TEMP 37; O2SAT 97
[2024-11-15] MEDS ORDERED: LACO200T4 PO (17:26)
[2024-11-15] MEDS ORDERED: LACO200T2 MT (17:35)
== END 2024-11-15 17:44 | disposition home or self-care (01) ==
LOC: ER 15:34
DX: G40.909 Epilepsy, unspecified, not intractable, without status epilepticus (principal); Z76.0 Encounter for issue of repeat prescription; Z88.5 Allergy status to narcotic agent; Z88.2 Allergy status to sulfonamides; Z79.899 Other long term (current) drug therapy; Z98.890 Other specified postprocedural states
CPT/HCPCS: 99281

== ENCOUNTER 2024-12-06 14:09 | Emergency (ER) | payer MEDICAID ==
[~2024-12-06] VITALS: Ht 175.3 cm; Wt 74.8 kg
[~2024-12-06 14:09] MED LIST changes: +LACO200T2 MT
[2024-12-06 14:15] VITALS: O2SAT 99
[2024-12-06] MEDS ORDERED: LACO200T2 MT (14:59)
[2024-12-06] MEDS ORDERED: LEVE100023 MT (14:59)
[2024-12-06 15:07] VITALS: BP 100/61; PULSE 56; RESP 16; TEMP 36.9; O2SAT 99
== END 2024-12-06 15:08 | disposition home or self-care (01) ==
LOC: ER 14:16
DX: Z76.0 Encounter for issue of repeat prescription (principal); Z79.899 Other long term (current) drug therapy; Z88.2 Allergy status to sulfonamides; Z88.5 Allergy status to narcotic agent
CPT/HCPCS: 99281

== ENCOUNTER 2024-12-29 17:38 | Emergency (ER) | payer MEDICAID ==
[~2024-12-29] VITALS: Ht 170.2 cm; Wt 77.0 kg
[~2024-12-29 17:38] MED LIST changes: +LEVE100023 MT
[2024-12-29 17:43] VITALS: O2SAT 98
[2024-12-29 18:22] LABS: HEMATOCRIT. 39.6 % (36.0-48.0); HEMOGLOBIN. 13.3 g/dL (12.0-16.0); MEAN CORPUSCULAR HEMOGLOBIN 30.7 pg (28.0-32.0); MEAN CORPUSCULAR HGB CONC 33.7 g/dL (31.0-37.0); MEAN CORPUSCULAR VOLUME 91.1 fL (81.0-99.0); PLATELET 251 x1000/uL (130-400); RED BLOOD CELL COUNT 4.35 mill/uL (4.2-5.4); RED CELL DISTRIBUTION WIDTH 13.7 % (11.6-14.6); WHITE BLOOD COUNT 9.4 x1000/uL (4.5-11.0)
[2024-12-29 18:23] LABS: DIFFERENTIAL COMMENT 1
[2024-12-29 18:34] LABS: CHLORIDE 106 mEq/L (98-107); POTASSIUM 3.7 mEq/L (3.5-5.1); SODIUM 138 mEq/L (136-145)
[2024-12-29 18:35] LABS: CARBON DIOXIDE 24 mEq/L (21-32)
[2024-12-29 18:36] LABS: CALCIUM 9.4 mg/dL (8.7-10.4)
[2024-12-29 18:40] LABS: CREATININE 0.9 mg/dL (0.6-1.0); GLUCOSE 120 mg/dL (70-105)
[2024-12-29 18:41] LABS: ETHANOL BLOOD < 10 mg/dL (<10); UREA NITROGEN BLOOD 11 mg/dL (9-23)
[2024-12-29 18:42] LABS: ALANINE AMINOTRANSFERASE 10 IU/L (10-49); ALBUMIN 4.6 g/dL (3.2-4.8); ASPARTATE AMINOTRANSFERASE 15 IU/L (<34)
[2024-12-29 18:43] LABS: BILIRUBIN DIRECT 0.1 mg/dL (<=3.0); BILIRUBIN TOTAL 0.5 mg/dL (0.1-1.0)
[2024-12-29 18:53] LABS: HCG SCREEN NEGATIVE
[2024-12-29 19:00] VITALS: TEMP 36.8
[2024-12-29] MEDS: ACETAMINOPHEN WITH CODEINE 300/30MG TABLET PO STA (19:02)
[2024-12-29] MEDS: LEVETIRACETAM 1000MG PREMIX 100 ML IV ONE (19:03)
[2024-12-29] MEDS: SODIUM CHLORIDE 0.9% 1,000 ML IV ONE (19:03)
[2024-12-29] MEDS ORDERED: LACO200T2 MT (19:25)
[2024-12-29] MEDS ORDERED: LEVE750T4 MT (19:25)
[2024-12-29 19:26] LABS: PLATELET ESTIMATE NORMAL
[2024-12-29 20:22] VITALS: BP 101/65; PULSE 76; RESP 14; O2SAT 98
== END 2024-12-29 20:26 | disposition home or self-care (01) ==
LOC: ER 17:38
DX: G40.909 Epilepsy, unspecified, not intractable, without status epilepticus (principal); F14.90 Cocaine use, unspecified, uncomplicated; Z79.899 Other long term (current) drug therapy; Z88.2 Allergy status to sulfonamides; Z88.5 Allergy status to narcotic agent; Z98.890 Other specified postprocedural states
CPT/HCPCS: 80076; 80048; 80320; 84703; 85025; 36415; 96365; 99284; J1953; J7030; Z7610 ×2; G0480

== ENCOUNTER 2025-01-18 15:21 | Emergency (ER) | payer MEDICAID ==
[~2025-01-18] VITALS: Ht 175.3 cm; Wt 78.0 kg
[2025-01-18 15:23] VITALS: O2SAT 99
[2025-01-18 15:28] VITALS: BP 113/69; PULSE 67; RESP 18; TEMP 36.7; O2SAT 98
[2025-01-18] MEDS ORDERED: LACO200T4 PO (16:13)
== END 2025-01-18 16:23 ==
LOC: ER 15:21
DX: R56.9 Unspecified convulsions (principal); Z76.0 Encounter for issue of repeat prescription; F14.90 Cocaine use, unspecified, uncomplicated; Z59.71 Insufficient health insurance coverage; Z79.899 Other long term (current) drug therapy; Z88.2 Allergy status to sulfonamides; Z88.5 Allergy status to narcotic agent
CPT/HCPCS: 99281

== ENCOUNTER 2025-02-16 14:08 | Emergency (ER) | payer MEDICAID ==
[~2025-02-16] VITALS: Ht 172.7 cm; Wt 73.0 kg
[2025-02-16 14:10] VITALS: O2SAT 99
[2025-02-16] MEDS ORDERED: LEVETIRACETAM 1,000MG in NACL 100ML PREMIX IV SCH (15:00)
[2025-02-16] MEDS: ACETAMINOPHEN 325MG TABLET PO ONE (15:03)
[2025-02-16] MEDS: LEVETIRACETAM 1000MG PREMIX 100 ML IV SCH (15:07)
[2025-02-16 15:11] LABS: BASOPHILS % 0.7 % (0.0-2.0); EOSINOPHILS % 4.9 % (0.0-5.0); HEMATOCRIT. 35.1 % (36.0-48.0); HEMOGLOBIN. 11.7 g/dL (12.0-16.0); LYMPHOCYTES % 22.4 % (20.0-50.0); MEAN PLATELET VOLUME 10.0 fl (7.4-10.4); MONOCYTES % 7.8 % (2.0-8.0); NEUTROPHILS % 64.2 % (40.0-76.0); PLATELET 285 x1000/uL (130-400); RED BLOOD CELL COUNT 3.85 mill/uL (4.2-5.4); RED CELL DISTRIBUTION WIDTH 13.2 % (11.6-14.6)
[2025-02-16 15:17] LABS: CREATININE 0.9 mg/dL (0.6-1.0); HCG SCREEN NEGATIVE; UREA NITROGEN BLOOD 9 mg/dL (9-23)
[2025-02-16 15:18] LABS: ETHANOL BLOOD < 10 mg/dL (<10)
[2025-02-16 16:43] VITALS: BP 115/68; PULSE 69; RESP 19; TEMP 36.7; O2SAT 100
== END 2025-02-16 16:53 | disposition home or self-care (01) ==
LOC: ER 14:08
DX: R56.9 Unspecified convulsions (principal); Z79.899 Other long term (current) drug therapy; Z88.2 Allergy status to sulfonamides; Z88.5 Allergy status to narcotic agent
CPT/HCPCS: 80048; 80320; 82962; 84703; 85025; 36415; 96365; 99284; J1953; G0480